=== PATIENT | female | born 1955 | race Caucasian/White ===

== ENCOUNTER 2024-01-30 17:02 | Observation (INO) | payer OTHER ==
[2024-01-30 17:48] LABS: HEMATOCRIT 47.9 % (32.4-45.2); HEMOGLOBIN 15.4 G/dL (10.7-15.3); MCH 30.1 pg (25.7-33.7); MCHC 32.2 g/dl (32.0-36.0); MEAN CELL VOLUME 93.5 fl (80-96); MEAN PLT VOLUME 7.5 fl (7.5-11.1); PLATELET COUNT 288.1 10^3/uL (134-434); RBC 5.12 10^6/uL (3.60-5.2); RDW 14.2 % (11.6-15.6); WHITE BLOOD COUNT 7.6 10^3/uL (4.0-10.8)
[2024-01-30 17:57] LABS: INR 1.06 (0.83-1.09); PROTHROMBIN TIME (PATIENT) 12.1 SEC (9.7-13.0)
[2024-01-30 17:59] LABS: ACTIVATED PTT 34.8 SECONDS (25.2-36.5)
[2024-01-30] MEDS ORDERED: MECLIZINE HCL 25 MG TABLET (FP) ONE (18:03)
[2024-01-30] MEDS: MECLIZINE HCL 25 MG TABLET (FP) PO ONE (18:06)
[2024-01-30 18:08] LABS: ALBUMIN 4.6 g/dl (3.4-5.0); BILIRUBIN,TOTAL 0.4 mg/dl (0.2-1); CALCIUM 9.4 mg/dl (8.5-10.1); CREATININE 0.6 mg/dl (0.6-1.3); POTASSIUM 3.9 mmol/L (3.5-5.1); TOT PROT 7.9 g/dl (6.4-8.2)
[2024-01-30 18:21] LABS: PLATELET ESTIMATE ADEQUATE
[2024-01-30] MEDS: SODIUM CHLORIDE 500 ML IV STA (18:56)
[2024-01-30 21:47] VITALS: BMI 23.2
[2024-01-30] MEDS: ATORVASTATIN CA 10 MG TABLET (FP) PO SCH (23:45)
[2024-01-31 08:29] LABS: CALCIUM 9.2 mg/dl (8.5-10.1); CREATININE 0.7 mg/dl (0.6-1.3); POTASSIUM 3.8 mmol/L (3.5-5.1)
[2024-01-31 09:34] LABS: BASO % 0.4 % (0-2.0); EOS % 3.2 % (0-4.5); HEMATOCRIT 40.8 % (32.4-45.2); HEMOGLOBIN 13.8 GM/dL (10.7-15.3); LYMPH % 37.8 % (8-40); MCH 30.3 pg (25.7-33.7); MCHC 33.9 g/dl (32.0-36.0); MEAN CELL VOLUME 89.6 fl (80-96); MONO % 8.9 % (3.8-10.2); NEUT % 49.7 % (42.8-82.8); PLATELET COUNT 296 10^3/uL (134-434); RBC 4.56 M/mm3 (3.60-5.2); RDW 13.8 % (11.6-15.6); WHITE BLOOD COUNT 5.8 K/mm3 (4.0-10.0)
[2024-01-31] MEDS: SODIUM CHLORIDE 500 ML IV STA (12:13)
[2024-01-31] MEDS: ALPRAZolam 1 MG TABLET PO PRN (14:27)
[2024-02-01 08:13] VITALS: BP 103/76; PULSE 53; RESP 16; TEMP 97.5
== END 2024-02-01 11:52 | disposition home or self-care (01) ==
LOC: FER 17:02 → FM/S 20:24 → INTOOBSV 20:24 → FM/S 22:30
PROVIDERS: ADMIT Internal Medicine
PROC: 3E0337Z Introduction of Electrolytic and Water Balance Substance into Peripheral Vein, Percutaneous Approach (ICD-10-PCS; principal; 2024-01-30)
DX: R27.0 Ataxia, unspecified (principal); I10 Essential (primary) hypertension; E78.5 Hyperlipidemia, unspecified; Z88.0 Allergy status to penicillin
CPT/HCPCS: 36415; 70450-TC; 70551-TC; 71045-TC-FY; 80048; 80053; 80061; 81003; 81015; 83036; 84484; 85025; 85027; 85610; 85730; 86850; 86900; 86901; 87086; 93005; 96360; 96361; 99285-25; G0378